=== PATIENT | female | born 1995 | race Caucasian/White ===

== ENCOUNTER 2019-04-15 17:16 | Emergency (ER) | payer MEDICAID, OTHER ==
[~2019-04-15] VITALS: Ht 160 cm; Wt 101.0 kg
[2019-04-15 17:32] VITALS: BP 132/85
[2019-04-15] MEDS ORDERED: IBUP-1984 PO (19:01)
== END 2019-04-15 19:07 | disposition home or self-care (01) ==
LOC: ER 17:17
DX: M67.432 Ganglion, left wrist (principal); Z88.5 Allergy status to narcotic agent
CPT/HCPCS: 99282